=== PATIENT | female | born 2005 | race African-American/Black ===

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

== ENCOUNTER 2025-01-20 18:54 | Emergency (ER) | payer OTHER, SELFPAY ==
--- NOTE | ~2025-01-20 | XR_ITS ---
CLINICAL HISTORY: pain 1 view right foot Comparison: None provided Findings: No displaced fracture by one view radiograph. Lateral view only is submitted. Likely moderate effusion of the imaged ankle. Soft tissue swelling and prominence nonspecific by one view study. No definite radiopaque retained foreign body in the [id number]. Forefoot and midfoot predominantly obscured. IMPRESSION: 1. Effusion of the imaged ankle. 2. No definite displaced fracture by one view radiograph. This document has been electronically signed by: Martinez Bess MD on 01/20/2025 19:41:46
--- NOTE | ~2025-01-20 | XR_ITS ---
CLINICAL HISTORY: pain 1 view right ankle Comparison: None provided Findings: No displaced fracture by one view radiograph. Lateral view only is submitted. Likely moderate effusion by one view x-ray. Soft tissue swelling and prominence nonspecific by one view study. No definite radiopaque retained foreign body in the [id number]. No definite dislocation of the imaged ankle in this one view study. IMPRESSION: 1. Effusion of the imaged ankle. 2. No definite displaced fracture by one view radiograph. 3. If additional views become available for review, an addendum to this report can be made. This document has been electronically signed by: Martinez Bess MD on 01/20/2025 19:42:39
[2025-01-20 19:15] VITALS: BP 117/78; PULSE 77; RESP 16; TEMP 36.9; O2SAT 100; BMI 19.0
--- NOTE | 2025-01-20 19:15 | ED.GENADULT ---
HPI - General Adult General Chief complaint: Extremity Injury, Lower Stated complaint: right ankle swelling/pain Time Seen by Provider: 01/20/25 22:19 Source: patient Mode of arrival: ambulatory Limitations: no limitations History of Present Illness ED Provider: HPI narrative: Patient no significant past medical history noticed swelling and pain in the right ankle for last 3 weeks no history of lupus no other joint involvement no history of sore throat no fever no chills no history of any injury no family history of blood clots no urinary symptom Related Data Previous Rx's ?Medication ?Instructions ?Recorded ibuprofen 200 mg tablet (Motrin IB) 200 mg PO Q6H PRN fever or pain 7 03/18/23 days #28 tabs ibuprofen 600 mg tablet 600 mg PO Q6H PRN fever or pain 01/20/25 #30 tabs prednisone 20 mg tablet 40 mg (2 x 20 mg) PO DAILY #10 tabs 01/20/25 Allergies Allergy/AdvReac Type Severity Reaction Status Date / Time No Known Allergies Allergy Verified 01/20/25 19:15 Review of Systems Review of Systems: Yes all other systems are reviewed and are negative PMFSH Past Medical History Medical History Asthma Social History Social History Alcohol intake: never Smoked in Last 30 Days: No Use of substances other than those prescribed or required for medical reasons: No Advance Directives: No Advance Directives Information Provided: Yes Physical Exam ED Vital Signs: Vital Signs - 24 hr 01/20/25 19:15 01/20/25 21:54 Temperature 98.5 F 98.6 F Pulse Rate 77 76 Respiratory Rate 16 18 Blood Pressure 117/78 99/60 Pulse Oximetry 100 99 Oxygen Delivery Method Room Air Room Air BMI result Body Mass Index 19.0 Appearance: Alert. Oriented X3. No acute distress. Eyes: no pallor or icterus ENT: Pharynx normal Oral Mucosa moist tympanic membrane intact no erythema, Neck: Normal inspection. Neck supple. CVS: Normal heart rate and rhythm. Pulses normal. Respiratory: No respiratory distress. Equal air entry bilateral, no wheezing/rales/rhonchi Abd: soft, not tender Skin: Skin warm and dry. Normal skin color. Normal skin turgor. Extremities: No lower extremity edema, no calf tenderness right ankle with slightly effusion and diffuse tenderness no other joints involved Neuro: Oriented X 3. Course Course Course Narrative: RME, this is a rapid medical exam performed by Alonso Rodriguez please refer to primary provider for complete H&P- 19-year-old female presents for evaluation of right foot and ankle pain. Her symptoms were mild on the bottom of the foot about 3 weeks ago and have been constant but now his lateralized more towards the medial foot and ankle. She does have some edema to this area. Plan for x-rays Medical Decision Making Differential Diagnosis Arthralgia/gouty arthritis/systemic joint disease Discharge Plan Discharge Clinical Impression: Arthritis of ankle, right Patient Disposition: Home, Self-Care Instructions: Arthritis (ED) Additional Instructions: Take prednisone as prescribed Ibuprofen for pain Follow with your PCP for further management Prescriptions: New prednisone 20 mg tablet 40 mg PO DAILY Qty: 10 0RF ibuprofen 600 mg tablet 600 mg PO Q6H PRN (Reason: fever or pain) Qty: 30 0RF No Action ibuprofen [Motrin IB] 200 mg tablet 200 mg PO Q6H PRN (Reason: fever or pain) 7 Days Qty: 28 0RF Print Language: Greenlandic
[2025-01-20 21:54] VITALS: BP 99/60; PULSE 76; RESP 18; TEMP 37; O2SAT 99
[2025-01-20 22:59] VITALS: BP 99/60; PULSE 76; RESP 18; TEMP 37; O2SAT 99
== END 2025-01-20 23:00 | disposition home or self-care (01) ==
PROVIDERS: Emergency Provider Internal Medicine
DX: M19.071 Primary osteoarthritis, right ankle and foot (principal); M79.671 Pain in right foot
CPT/HCPCS: 73610; 73630; 99283; 99284

== ENCOUNTER → 2025-01-20 19:17 | Outpatient (BNV) | payer OTHER, SELFPAY | PROVIDERS: Visit Provider Radiology Neuroradiology | DX: R22.41 Localized swelling, mass and lump, right lower limb (principal); M79.671 Pain in right foot | CPT/HCPCS: 73610; 73630 ==